=== PATIENT | male | born 1960 | race Caucasian/White ===

== ENCOUNTER 2020-04-11 16:21 | Emergency (ER) | payer OTHER, SELFPAY ==
--- NOTE | ~2020-04-11 | US_ITS ---
EXAMINATION: US arterial duplex LE LT INDICATION: Left foot pain TECHNIQUE: High-resolution left lower extremity arterial duplex ultrasound is performed. COMPARISON: None available FINDINGS: There is extensive atherosclerosis throughout the visualized left lower limb arteries. Taylor rial waveforms are monophasic and blunted below the level of the mid superficial femoral artery. Ther e are detectable arterial waveforms in the distal anterior tibial and posterior tibial arteries. IMPRESSION: 1. Severe atherosclerosis with at least two-vessel runoff at the ankle. Reviewed, dictated and finalized at location A. 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
--- NOTE | ~2020-04-11 | XR_ITS ---
EXAMINATION: XR foot LT min 3V DATE: 04/11/2020 17:47 INDICATION: Left foot pain TECHNIQUE: Dorsoplantar, lateral, and 2 oblique views of the left foot were obtained. COMPARISON: None. FINDINGS: There is no fracture. Bone alignment is normal. 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 A plantar ca lcaneal enthesophyte is noted. There is evidence of prior avulsion fracture of the medial malleolus. IMPRESSION: 1. No acute osseous abnormality. Reviewed, dictated and finalized at location A. 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
[2020-04-11 16:37] VITALS: BP 149/80; PULSE 98; RESP 17; TEMP 36.6; O2SAT 100
--- NOTE | 2020-04-11 17:20 | ED.EXTPRO ---
HPI - Extremity Problem General Chief complaint: Extremity Problem,Nontraumatic Stated complaint: LEFT LEG PAIN Time Seen by Provider: 04/11/20 16:55 Source: RN notes reviewed History of Present Illness HPI Narrative: Patient presents emergency department from home for left foot pain. Patient states pain has been progressively worsening over the past 6 months. He denies any trauma or injury to the foot states that when the pain occurs begins in the foot and travels up his leg worse with ambulation patient states that yesterday after taking a shower he noticed that foot at that time appeared purple but that did improve he denies any fevers or chills chest pain shortness of breath or any other symptoms has had no previous evaluation Related Data Allergies Allergy/AdvReac Type Severity Reaction Status Date / Time No Known Allergies Allergy Verified 04/11/20 17:02 Review of Systems Review of Systems: Narrative: Gen.: Denies fevers or chills Musculoskeletal: See HPI Respiratory: Denies shortness of breath CV: Denies chest pain Neuro: Denies numbness, tingling, weakness Skin: Denies rash Endo: Denies DM PMFSH Past Medical History Medical History (Updated 04/11/20 @ 18:28 by Kendell Anderson DO) Patient denies significant medical history Social History Social History (Updated 04/11/20 @ 17:21 by Kendell Anderson DO) Smoking status: Current every day smoker Gender identity (if verbalized by the patient): Male Exam Narrative: Exam Narrative: APPEARANCE: No acute distress, nontoxic, resting in bed EYES: EOMI HEENT: Normocephalic, atraumatic, RESPIRATORY: No respiratory distress Clear to auscultation bilaterally with no rhonchi wheezing or rales. CARDIOVASCULAR: Regular rate and rhythm without murmurs rubs or gallops. ABDOMINAL: Soft, nontender, nondistended, no rebound or guarding MUSCULOSKELETAl: Moves all extremities. No clubbing, cyanosis or edema. NEURO: Awake and alert. Following commands, speech normal, no focal deficits SKIN:: Warm, dry. No rashes lesions or abrasions PSYCHIATRIC: Normal affect/mood, Course Course Emergency Course: Called and discussed with Dr Bojorquez presentation work-up discussed peripheral vascular disease recommend the patient be started on aspirin 81 mg daily as well as Plavix 75 mg daily and will follow as an outpatient Discussed with patient results of workup and diagnosis. Discussed need for follow-up with primary care, proper use of medication, and reasons to return to the emergency department. Patient understands and agrees to current treatment plan Vital Signs Vital signs: Vital Signs Temperature 97.9 F 04/11/20 16:37 Pulse Rate 98 04/11/20 16:37 Respiratory Rate 17 04/11/20 16:37 Blood Pressure 149/80 H 04/11/20 16:37 Pulse Oximetry 100 04/11/20 16:37 Temperature 97.9 F 04/11/20 16:37 Pulse Rate 98 04/11/20 16:37 Respiratory Rate 17 04/11/20 16:37 Blood Pressure 149/80 H 04/11/20 16:37 Pulse Oximetry 100 04/11/20 16:37 MDM - Extremity (Nontraumatic) Lab Data Result diagrams: 04/11/20 18:00 04/11/20 18:00 Labs: Lab Results 04/11/20 04/11/20 04/11/20 Range/Units 18:00 18:00 18:00 WBC 7.3 (4.5-10.0) K/mm3 RBC 4.63 (4.6-6.20) M/mm3 Hgb 15.4 (14.0-18.0) g/dL Hct 44.3 (42.0-52.0) % MCV 95.7 (80-100) fl MCH 33.3 (26-34) pg MCHC 34.8 (32-36) g/dl RDW 12.5 (11.5-14.5) % Plt Count 310 (150-375) k/mm3 MPV 9.2 (7.4-10.4) fl Immature Gran % (Auto) 0.7 H (0-0.5) % Neut % (Auto) 59.0 (45.5-73.1) % Lymph % (Auto) 27.7 (18.3-44.2) % Treasure % (Auto) 8.8 H (2.6-8.5) % Eos % (Auto) 2.6 (0-4.4) % Baso % (Auto) 1.2 (0.2-1.2) % Lymph # (Auto) 2.01 (0.9-3.2) K/mm3 Treasure # (Auto) 0.6 (0.1-0.6) K/mm3 Eos # (Auto) 0.2 (0-0.3) K/mm3 Baso # (Auto) 0.1 (0.0-0.1) K/mm3 Abs Immat Gran (auto) 0.05 H (0.00-0.031) K/mm3 Abs
[2020-04-11 18:06] LABS: Basophils Absolute Auto 0.1 K/mm3 (0.0-0.1); Basophils Percent Auto 1.2 % (0.2-1.2); Eosinophils Absolute Auto 0.2 K/mm3 (0-0.3); Eosinophils Percent Auto 2.6 % (0-4.4); Hematocrit 44.3 % (42.0-52.0); Hemoglobin 15.4 g/dL (14.0-18.0); Immature Granulocyte Absolute 0.05 K/mm3 (0.00-0.031); Immature Granulocyte Percent A 0.7 % (0-0.5); Lymphocytes Absolute Auto 2.01 K/mm3 (0.9-3.2); Lymphocytes Percent Auto 27.7 % (18.3-44.2); Mean Corpuscular HGB Conc 34.8 g/dl (32-36); Mean Corpuscular Hemoglobin 33.3 pg (26-34); Mean Corpuscular Volume 95.7 fl (80-100); Mean Platelet Volume 9.2 fl (7.4-10.4); Monocytes Absolute Auto 0.6 K/mm3 (0.1-0.6); Monocytes Percent Auto 8.8 % (2.6-8.5); Neutrophils Absolute Auto 4.3 K/mm3 (1.3-6.7); Platelet Count Result 310 k/mm3 (150-375); Red Blood Count 4.63 M/mm3 (4.6-6.20); Red Cell Distribution Width 12.5 % (11.5-14.5); White Blood Count 7.3 K/mm3 (4.5-10.0)
[2020-04-11 18:18] LABS: Anion Gap 3 mmol/L (8-16); Blood Urea Nitrogen 13 mg/dL (9-20); Calcium 9.5 mg/dL (8.4-10.2); Carbon Dioxide 31 mmol/L (22-30); Chloride 103 mmol/L (98-107); Estimated Glomerular Filt Rate > 60; Glucose 106 mg/dL (75-110); Potassium 4.5 mmol/L (3.4-5.0); Sodium 137 mmol/L (137-145)
[2020-04-11 18:19] LABS: INR 0.9; Prothrombin Time 12.9 Seconds (11.1-14.7)
[2020-04-11 18:20] LABS: Partial Thromboplastin Time 29.5 SECONDS (22.3-36.8)
[2020-04-11 18:45] VITALS: BP 145/99; PULSE 84; RESP 18; TEMP 37.2; O2SAT 97
[2020-04-11] MEDS: ASPIRIN 81 MG ENTERIC TABLET PO (18:45)
[2020-04-11 18:48] VITALS: BP 145/99; PULSE 84; RESP 18; TEMP 37.2; O2SAT 97
== END 2020-04-11 18:53 | disposition home or self-care (01) ==
PROVIDERS: Emergency Provider Emergency Medicine
DX: I73.9 Peripheral vascular disease, unspecified (principal); F17.200 Nicotine dependence, unspecified, uncomplicated
CPT/HCPCS: 36415; 73630; 80048; 85025; 85610; 85730; 93926; 99284; A9270